=== PATIENT | female | born 1995 | race Two or more races ===

== ENCOUNTER 2018-07-01 18:41 | Emergency (ER) | payer SELFPAY ==
[~2018-07-01] VITALS: Ht 177.8 cm; Wt 102.5 kg
--- NOTE | 2018-07-01 18:58 | NUR ---
FIRST CONTACT WITH PT. PT NON-TOXIC APPEARING SITTING UP IN [facility] NAD NOTED. PT REPORTS INTERMITTENT R FLANK/RUQ PAIN X SEVERAL WEEKS, WORSENING LAST NIGHT. +N/V/CHILLS LAST NIGHT; +NAUSEA TODAY. PT DENIES CP/BLOOD IN EMESIS/TRAUMA/URINARY SYMPTOMS/FEVER. NO MEDICAL HX OR PRIOR ABD SX. LMP: "ABOUT A MONTH AGO" LBM: TODAY PT AMBULATED STEADILY TO BATHROOM TO PROVIDE UA.
[2018-07-01] MEDS ORDERED: SODIUM CHLORIDE FLUSH 10ML SYR IVF ONE (19:30)
--- NOTE | 2018-07-01 19:40 | NUR ---
UA COLLECTED AND SENT TO LAB. PT IN US AT THIS TIME.
[2018-07-01 19:46] LABS: BASOPHILS # (AUTO) 0.03 x10^3/uL (0-0.1); BASOPHILS % (AUTO) 1 % (0-1); EOSINOPHILS # (AUTO) 0.06 x10^3/uL (0-0.4); EOSINOPHILS % (AUTO) 1 % (1-7); LYMPHOCYTES # (AUTO) 1.45 x10^3/uL (1-3.4); LYMPHOCYTES % (AUTO) 24 % (22-44); MD NO; MEAN CORPUSCULAR HEMOGLOBIN 32.6 pg (27.0-34.8); MEAN CORPUSCULAR VOLUME 95.8 fL (80-100); MEAN PLATELET VOLUME 8.8 fL (7.4-10.4); MONOCYTES # (AUTO) 0.86 x10^3/uL (0.2-0.8); MONOCYTES % (AUTO) 14 % (2-9); NEUTROPHILS # (AUTO) 3.77 x10^3/uL (1.8-6.8); NEUTROPHILS % (AUTO) 61 % (42-75); PLATELET COUNT 192 x10^3/uL (130-400); RED BLOOD COUNT 4.21 x10^6/uL (3.82-5.3); RED CELL DISTRIBUTION WIDTH 12.6 % (9.6-15.2)
[2018-07-01 19:58] LABS: HCG UR SG > 1.030 (1.003-1.030); MICROSCOPIC INDICATED
[2018-07-01 19:59] LABS: ALBUMIN 3.5 g/dL (3.4-5.0); ANION GAP 5 mmol/L (5-15); CALCIUM 8.6 mg/dL (8.5-10.1); CHLORIDE 107 mmol/L (98-107)
[2018-07-01 20:04] LABS: CULTURE INDICATED? NO
[2018-07-01 20:07] LABS: ALANINE AMINOTRANSFERASE 628 U/L (12-78); ALKALINE PHOSPHATASE 155 U/L (45-117); CREATININE 0.78 mg/dL (0.55-1.02); TOTAL PROTEIN 7.6 g/dL (6.4-8.2)
[2018-07-01 20:15] VITALS: BP 125/68
--- NOTE | 2018-07-01 20:16 | NUR ---
PT UPDATED TO POC (RECHECK/DISPO) AND DEMONSTRATES UNDERSTANDING. CHART UP FOR RECHECK. PT DENIES PAIN/NEED FOR PAIN MEDICATIONS.
--- NOTE | 2018-07-01 21:00 | NUR ---
PT CONTINUES TO DENY NEED FOR PAIN MEDICATIONS. HEP LABS NOT YET RESULTED, PER ERP OKAY TO DC. DC EDUCATION PROVIDED, PT DEMONSTRATES UNDERSTANDING. PT AMBUALTED STEADILY TO DC WITH RN AND FAMILY
== END 2018-07-01 21:03 | disposition home or self-care (01) ==
LOC: ED 20:22
DX: R10.11 Right upper quadrant pain (principal); R11.2 Nausea with vomiting, unspecified
CPT/HCPCS: 36415; 76700; 80053; 80074; 81001; 81025; 83690; 85025; 99284